=== PATIENT | female | born 1995 | race Caucasian/White ===

== ENCOUNTER 2017-11-06 20:01 | Emergency (ER) | payer BC ==
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
--- NOTE | 2017-11-07 15:44 | CR ---
Bilateral femurs: AP and lateral view of both femurs were obtained. Comparison: No prior study. No fracture or other bony abnormality is seen. Impression: 1. No abnormality is seen on bilateral femur study. Diagnostic code #1
== END 2017-11-06 22:33 | disposition home or self-care (01) ==
LOC: JD.ED 20:01
DX: S77.12XA Crushing injury of left thigh, initial encounter (principal); S77.11XA Crushing injury of right thigh, initial encounter; W23.0XXA Caught, crushed, jammed, or pinched between moving objects, initial encounter; Y92.830 Public park as the place of occurrence of the external cause
CPT/HCPCS: 36415; 73552-50; 735525026; 80048; 82550; 85025; 99283; 99284-25

== ENCOUNTER 2021-02-08 20:50 | Emergency (ER) | payer BC, OTHER ==
[2021-02-08] MEDS ORDERED: Sodium Chloride 0.9% 10 ML Syringe FLUSH PRN (20:57)
[2021-02-08] MEDS ORDERED: Sodium Chloride 0.9% 1,000 ML IV SCH (21:00)
[2021-02-08 22:27] LABS: ACETAMINOPHEN 19 ug/mL (10-30)
[2021-02-08] MEDS ORDERED: Acetylcysteine 20% 200 MG/ML 30 ML SDV IV ONE (22:45)
[2021-02-08] MEDS ORDERED: Acetylcysteine 9,000 MG in Dextrose 5% in Water 200 ML IV ONE ×2 (22:45)
[2021-02-08] MEDS ORDERED: Metoclopramide 10 MG/2 ML SDV IVPUSH ONE (23:51)
[2021-02-09] MEDS ORDERED: Ondansetron 4 MG/2 ML SDV IVPUSH ONE (00:44)
--- NOTE | 2021-02-09 01:21 | EDM.PDOCBH ---
ED HPI GENERAL MEDICAL PROBLEM - General Chief Complaint: Drug or Alcohol Abuse Stated Complaint: [facility] Time Seen by Provider: 02/08/21 20:54 Source of Information: Reports: Patient, EMS, Family History Limitations: Reports: No Limitations - History of Present Illness INITIAL COMMENTS - FREE TEXT/NARRATIVE: The patient presents by [facility] for an overdose. The patient admits she was trying to kill herself. She has been depressed for about a year after she broke up with a boyfriend. She did not seek any help. She has been trying to deal with it on her own. She has been dealing with a lot lately and she tried to kill herself. She took oxycodone with tylenol, zofran, tylenol, aspirin and what ever else she could find. She has thought about doing this in the past but never went through with it. She has no nausea, vomiting, fever, chills, cough, chest pain, abdominal pain, dysuria or hematuria. She will not give many details. She said that she started this morning and when she would wake up she would take more pills. Her mother called her and knew something was wrong and called 911. Onset: Gradual Duration: Hour(s): Severity: Moderate Improves with: Reports: None Worsens with: Reports: None Associated Symptoms: Reports: No Other Symptoms - Related Data Allergies Allergy/AdvReac Type Severity Reaction Status Date / Time No Known Allergies Allergy Verified 02/08/21 21:04 Home Meds: Home Meds . [No Known Home Meds] 11/06/17 [History] Past Medical History Genitourinary History: Reports: Pyelonephritis - Past Surgical History GI Surgical History: Reports: Appendectomy Social & Family History - Family History Family Medical History: No Pertinent Family History - Tobacco Use Tobacco Use Status *Q: Never Tobacco User - Caffeine Use Caffeine Use: Reports: None - Living Situation & Occupation Living situation: Reports: Single, Alone Occupation: Employed ([employer]) ED ROS GENERAL - Review of Systems Review Of Systems: See Below Constitutional: Reports: No Symptoms HEENT: Reports: No Symptoms Respiratory: Reports: No Symptoms Cardiovascular: Reports: No Symptoms Endocrine: Reports: No Symptoms GI/Abdominal: Reports: No Symptoms : Reports: No Symptoms Musculoskeletal: Reports: No Symptoms Psychiatric: Reports: Depression, Suicidal Ideation ED EXAM, BEHAVIORAL HEALTH - Physical Exam Exam: See Below Exam Limited By: No Limitations General Appearance: Alert, Mild Distress (patient is crying) Ears: Normal External Exam Nose: Normal Inspection Head: Atraumatic, Normocephalic Neck: Normal Inspection Respiratory/Chest: No Respiratory Distress, Lungs Clear, Normal Breath Sounds Cardiovascular: Regular Rate, Rhythm, No Edema, No Murmur GI/Abdominal: Soft, Non-Tender, No Organomegaly, No Mass Extremities: Normal Inspection Neurological: Alert, No Motor/Sensory Deficits, Oriented x 3 #1 Interpretation EKG Date: 02/08/21 Time: 20:57 Rhythm: Other (sinus bradycardia) Rate (Beats/Min): 57 [place]: Normal P-Wave: Present QRS: Normal ST-T: Normal QT: Normal COURSE, BEHAVIORAL HEALTH COMP - Course Vital Signs: Last Vital Signs Temp 97.6 F 02/08/21 21:00 Pulse 63 02/09/21 06:26 Resp 16 02/09/21 06:26 BP 106/65 02/09/21 06:26 Pulse Ox 97 02/09/21 06:26 Orders, Labs, Meds: Active Orders 24 hr Category Date Time Status Cardiac Monitoring [RC] . DIRECTED Care 02/08/21 20:57 Active EKG Documentation Completion [RC] STAT Care 02/08/21 20:58 Active Peripheral IV Care [RC] . DIRECTED Care 02/08/21 20:58 Active Suicide Precautions [RC] Q15M Care 02/08/21 21:12 Active Acetylcysteine [Acetadote 20%] 6,000 mg Med 02/09/21 05:30 Active Dextrose 5% in Water 1,000 ml IV ONETIME Sodium Chloride 0.9% [Normal Saline] 1,000 ml Med 02/08/21 21:00 Active IV .BOLUS Sodium Chloride 0.9% [Saline Flush] Med 02/08/21 20:57 Active 10 ml FLUSH ASDIRECTED PRN Peripheral IV Insertion Adult [OM.PC] Stat Oth 02/08/21 20:57 Ordered Medication Orders Sodium Chloride (Normal Saline) 1,000 mls @ 1,000 mls/hr IV .BOLUS MELISSA Last Admin: 02/08/21 21:30 Dose: 1,000 mls/hr Documented by: JOSETTE Acetylcysteine 6,000 mg/ (Dextrose/Water) 1,030 mls @ 64.375 mls/hr IV ONETIME ONE Stop: 02/09/21 21:29 Last Admin: 02/09/21 05:53 Dose: Not Given Documented by: LINDA Sodium Chloride (Sodium Chloride 0.9% 10 Ml Syringe) 10 ml FLUSH ASDIRECTED PRN PRN Reason: Keep Vein Open Last Admin: 02/08/21 21:30 Dose: 10 ml Documented by: JOSETTE Laboratory Tests 02/08/21 02/08/21 02/08/21 Range/Units 20:56 21:45 21:45 WBC 6.75 (3.98-10.04) K/mm3 RBC 4.04 (3.98-5.22) M/mm3 Hgb 12.3 D (11.2-15.7) gm/dl Hct 38.3 (34.1-44.9) % MCV 94.8 D (79.4-94.8) fl MCH 30.4 (25.6-32.2) pg MCHC 32.1 L (32.2-35.5) g/dl RDW Std Deviation 42.1 (36.4-46.3) fL Plt Count 150 L (182-369) K/mm3 MPV 12.5 H (9.4-12.3) fl Neut % (Auto) 84.1 H (34.0-71.1) % Lymph % (Auto) 11.7 L (19.3-51.7) % [place] % (Auto) 4.0 L (4.7-12.5) % Eos % (Auto) 0 L (0.7-5.8) Baso % (Auto) 0.1 (0.1-1.2) % Neut # (Auto) 5.67 (1.56-6.13) K/mm3 Lymph # (Auto) 0.79 L (1.18-3.74) K/mm3 [place] # (Auto) 0.27 (0.24-0.36) K/mm3 Eos # (Auto) 0.00 L (0.04-0.36) K/mm3 Baso # (Auto) 0.01 (0.01-0.08) K/mm3 Sodium 134 L (136-145) mEq/L Potassium 4.0 (3.5-5.1) mEq/L Chloride 101 (98-107) mEq/L Carbon Dioxide 21 (21-32) mEq/L Anion Gap 16.0 H (5-15) BUN 13 (7-18) mg/dL Creatinine 0.8 (0.55-1.02) mg/dL Est Cr Clr Drug Dosing 104.82 mL/min Estimated GFR (MDRD) > 60 (>60) mL/min BUN/Creatinine Ratio 16.3 (14-18) Glucose 97 (70-99) mg/dL Calcium 7.8 L (8.5-10.1) mg/dL Total Bilirubin 2.1 H (0.2-1.0) mg/dL AST 16 (15-37) U/L ALT 14 (14-59) U/L Alkaline Phosphatase 50 (46-116) U/L Total Protein 6.9 (6.4-8.2) g/dl Albumin 3.5 (3.4-5.0) g/dl Globulin 3.4 gm/dL Albumin/Globulin Ratio 1.0 (1-2) TSH 3rd Generation 1.407 (0.358-3.74) uIU/mL HCG, Qual (NEGATIVE) Salicylates (2.8-20) mg/dL Urine Opiates Screen (ELSLIJ=509) Ur Buprenorphine Scrn (CUTOFF=10) Ur Oxycodone Screen (VDO2LV=751) Urine Methadone Screen (UHGLMX=027) Ur Propoxyphene Screen (CZEXLU=473) Acetaminophen 19 (10-30) ug/mL Ur Barbiturates Screen (JCDBVH=504) Ur Tricyclics Screen (OJMQEZ=157) Ur Phencyclidine Scrn (CUTOFF=25) Ur Amphetamine Screen (YDTIWC=454) U Methamphetamines Scrn (PPKWTV=710) U Benzodiazepines Scrn (IEHQOO=938) U Cocaine Metab Screen (YBMZNL=629) U Marijuana (THC) Screen (CUTOFF=50) Ethyl Alcohol 0.00 (0.00) gm% SARS-CoV-2 RNA (CAROLYN) Negative (NEGATIVE) 02/08/21 02/08/21 02/08/21 Range/Units 21:45 21:45 22:30 WBC (3.98-10.04) K/mm3 RBC (3.98-5.22) M/mm3 Hgb (11.2-15.7) gm/dl Hct (34.1-44.9) % MCV (79.4-94.8) fl MCH (25.6-32.2) pg MCHC (32.2-35.5) g/dl RDW Std Deviation (36.4-46.3) fL Plt Count (182-369) K/mm3 MPV (9.4-12.3) fl Neut % (Auto) (34.0-71.1) % Lymph % (Auto) (19.3-51.7) % [place] % (Auto) (4.7-12.5) % Eos % (Auto) (0.7-5.8) Baso % (Auto) (0.1-1.2) % Neut # (Auto) (1.56-6.13) K/mm3 Lymph # (Auto) (1.18-3.74) K/mm3 [place] # (Auto) (0.24-0.36) K/mm3 Eos # (Auto) (0.04-0.36) K/mm3 Baso # (Auto) (0.01-0.08) K/mm3 Sodium (136-145) mEq/L Potassium (3.5-5.1) mEq/L Chloride (98-107) mEq/L Carbon Dioxide (21-32) mEq/L Anion Gap (5-15) BUN (7-18) mg/dL Creatinine (0.55-1.02) mg/dL Est Cr Clr Drug Dosing mL/min Estimated GFR (MDRD) (>60) mL/min BUN/Creatinine Ratio (14-18) Glucose (70-99) mg/dL Calcium (8.5-10.1) mg/dL Total Bilirubin (0.2-1.0) mg/dL AST (15-37) U/L ALT (14-59) U/L Alkaline Phosphatase (46-116) U/L Total Protein (6.4-8.2) g/dl Albumin (3.4-5.0) g/dl Globulin gm/dL Albumin/Globulin Ratio (1-2) TSH 3rd Generation (0.358-3.74) uIU/mL HCG, Qual Negative (NEGATIVE) Salicylates < 0.2 L (2.8-20) mg/dL Urine Opiates Screen Negative (QVOJND=553) Ur Buprenorphine Scrn Negative (CUTOFF=10) Ur Oxycodone Screen Presumptive positive H (IUP2GG=192) Urine Methadone Screen Negative (XYZUFG=744) Ur Propoxyphene Screen Negative (SIQQET=324) Acetaminophen (10-30) ug/mL Ur Barbiturates Screen Negative (XVDGLO=716) Ur Tricyclics Screen Negative (AJIQSO=433) Ur Phencyclidine Scrn Negative (CUTOFF=25) Ur Amphetamine Screen Negative (NWYZKI=930) U Methamphetamines Scrn Negative (CFLMCL=106) U Benzodiazepines Scrn Negative (OHKATX=597) U Cocaine Metab Screen Negative (CBQVFB=266) U Marijuana (THC) Screen Negative (CUTOFF=50) Ethyl Alcohol (0.00) gm% SARS-CoV-2 RNA (CAROLYN) (NEGATIVE) 02/09/21 02/09/21 02/09/21 Range/Units 00:55 05:00 05:00 WBC (3.98-10.04) K/mm3 RBC (3.98-5.22) M/mm3 Hgb (11.2-15.7) gm/dl Hct (34.1-44.9) % MCV (79.4-94.8) fl MCH (25.6-32.2) pg MCHC (32.2-35.5) g/dl RDW Std Deviation (36.4-46.3) fL Plt Count (182-369) K/mm3 MPV (9.4-12.3) fl Neut % (Auto) (34.0-71.1) % Lymph % (Auto) (19.3-51.7) % [place] % (Auto) (4.7-12.5) % Eos % (Auto) (0.7-5.8) Baso % (Auto) (0.1-1.2) % Neut # (Auto) (1.56-6.13) K/mm3 Lymph # (Auto) (1.18-3.74) K/mm3 [place] # (Auto) (0.24-0.36) K/mm3 Eos # (Auto) (0.04-0.36) K/mm3 Baso # (Auto) (0.01-0.08) K/mm3 Sodium 137 136 (136-145) mEq/L Potassium 3.9 3.9 (3.5-5.1) mEq/L Chloride 103 103 (98-107) mEq/L Carbon Dioxide 23 23 (21-32) mEq/L Anion Gap 14.9 13.9 (5-15) BUN 11 10 (7-18) mg/dL Creatinine 0.9 0.8 (0.55-1.02) mg/dL Est Cr Clr Drug Dosing 93.18 104.82 mL/min Estimated GFR (MDRD) > 60 > 60 (>60) mL/min BUN/Creatinine Ratio 12.2 L 12.5 L (14-18) Glucose 131 H 131 H (70-99) mg/dL Calcium 7.0 L 7.4 L (8.5-10.1) mg/dL Total Bilirubin 1.9 H 1.9 H (0.2-1.0) mg/dL AST 12 L 11 L (15-37) U/L ALT 11 L 19 (14-59) U/L Alkaline Phosphatase 44 L 43 L (46-116) U/L Total Protein 6.4 6.7 (6.4-8.2) g/dl Albumin 3.0 L 3.1 L (3.4-5.0) g/dl Globulin 3.4 3.6 gm/dL Albumin/Globulin Ratio 0.9 L 0.9 L (1-2) TSH 3rd Generation (0.358-3.74) uIU/mL HCG, Qual (NEGATIVE) Salicylates < 0.2 L (2.8-20) mg/dL Urine Opiates Screen (LQVEAM=433) Ur Buprenorphine Scrn (CUTOFF=10) Ur Oxycodone Screen (ZBO1ML=286) Urine Methadone Screen (NELARJ=922) Ur Propoxyphene Screen (XZNQDU=359) Acetaminophen 0 L (10-30) ug/mL Ur Barbiturates Screen (CZNKFR=356) Ur Tricyclics Screen (PVQIYB=417) Ur Phencyclidine Scrn (CUTOFF=25) Ur Amphetamine Screen (NPRKMJ=453) U Methamphetamines Scrn (JARZYZ=032) U Benzodiazepines Scrn (AWOEBB=268) U Cocaine Metab Screen (VQYVBU=400) U Marijuana (THC) Screen (CUTOFF=50) Ethyl Alcohol (0.00) gm% SARS-CoV-2 RNA (CAROLYN) (NEGATIVE) Medications Generic Name Dose Route Start Last Admin Trade Name Freq PRN Reason Stop Dose Admin Sodium Chloride 1,000 mls @ 1,000 mls/hr 02/08/21 21:00 02/08/21 21:30 Normal Saline IV 1,000 mls/hr .BOLUS MELISSA Administration Acetylcysteine 6,000 mg/ 1,030 mls @ 64.375 mls/hr 02/09/21 05:30 02/09/21 05:53 Dextrose/Water IV 02/09/21 21:29 Not Given ONETIME ONE Sodium Chloride 10 ml 02/08/21 20:57 02/08/21 21:30 Sodium Chloride 0.9% 10 Ml Syringe FLUSH 10 ml ASDIRECTED PRN Administration Keep Vein Open Discontinued Medications Generic Name Dose Route Start Last Admin Trade Name Sathyaq PRN Reason Stop Dose Admin Acetylcysteine 9,000 mg/ 245 mls @ 245 mls/hr 02/08/21 22:45 02/08/21 23:23 Dextrose/Water IV 02/08/21 23:44 245 mls/hr ONETIME ONE Administration Acetylcysteine 3,000 mg/ 515 mls @ 128.75 mls/hr 02/09/21 01:30 02/09/21 01:37 Dextrose/Water IV 02/09/21 05:29 128.75 mls/hr ONETIME ONE Administration Metoclopramide HCl 10 mg 02/08/21 23:51 02/09/21 00:00 Metoclopramide 10 Mg/2 Ml Sdv IVPUSH 02/08/21 23:52 10 mg ONETIME ONE Administration Ondansetron HCl 4 mg 02/09/21 00:44 02/09/21 01:07 Ondansetron 4 Mg/2 Ml Sdv IVPUSH 02/09/21 00:45 4 mg ONETIME ONE Administration Re-Assessment/Re-Exam: I ordered an IV NS 1L bolus, EKG, labs, urine drug screen, acetaminophen and tylenol. Her platelets were a little low at 150. Her Na was low at 134. Her anion gap is elevated at 16. Her total bilis is 2.1. Her HCG is negative. Her TSH is normal. Her salicylates are <0.2. Her acetaminophen is elevated at 19. Her urine drug screen is positive for oxycodone which she admits to taking. She later tells me about 9 pills. Her ETOH is 0. Her COVID 19 is negative. Poison control was contacted and they recommended started acetadote because we do not know the exact time or amount. She did say maybe about 30 of the tylenol. She also had some nausea and vomiting so I gave her reglan and later some zofran. Poison control did recommend a repeat CMP at 4 hours and that looked good. They wanted to give the next 2 doses of acetadote. I ordered another CMP and her LFTs look good. Her salicylates are still less then 0.2. Her acetaminophen is 0 now. We can stop giving the acetadote. I will try to find her a place to go. I called [facility] and talked with Dr Tompkins the psychiatrist telecommunications engineer and he accepted the patient. Departure - Departure Time of Disposition: 07:30 Disposition: DC/Tfer to Psych Hosp[facility]Unit [facility] Condition: Serious Clinical Impression: Suicidal ideation, Suicide attempt Drug overdose, intentional Qualifiers: Encounter type: initial encounter Qualified Code(s): T50.902A - Poisoning by unspecified drugs, medicaments and biological substances, intentional self-harm, initial encounter - Discharge Information Referrals: PCP,None [Primary Care Provider] - Forms: ED Department Discharge Sepsis Event Note (ED) - Evaluation Sepsis Screening Result: No Definite Risk - Focused Exam Vital Signs: Vital Signs Temp Pulse Resp BP Pulse Ox 02/09/21 06:26 63 16 106/65 97 02/09/21 05:33 66 16 115/67 97 02/09/21 04:08 54 L 16 105/72 99 02/09/21 03:12 60 16 102/67 97 02/08/21 21:00 97.6 F 62 18 123/68 100 - My Orders Last 24 Hours: My Active Orders 02/08/21 20:57 Cardiac Monitoring [RC] . DIRECTED Sodium Chloride 0.9% [Saline Flush] 10 ml FLUSH ASDIRECTED PRN Peripheral IV Insertion Adult [OM.PC] Stat 02/08/21 20:58 EKG Documentation Completion [RC] STAT Peripheral IV Care [RC] . DIRECTED 02/08/21 21:00 Sodium Chloride 0.9% [Normal Saline] 1,000 ml IV .BOLUS 02/08/21 21:12 Suicide Precautions [RC] Q15M 02/09/21 05:30 Acetylcysteine [Acetadote 20%] 6,000 mg Dextrose 5% in Water 1,000 ml IV ONETIME - Assessment/Plan Last 24 Hours: My Active Orders 02/08/21 20:57 Cardiac Monitoring [RC] . DIRECTED Sodium Chloride 0.9% [Saline Flush] 10 ml FLUSH ASDIRECTED PRN Peripheral IV Insertion Adult [OM.PC] Stat 02/08/21 20:58 EKG Documentation Completion [RC] STAT Peripheral IV Care [RC] . DIRECTED 02/08/21 21:00 Sodium Chloride 0.9% [Normal Saline] 1,000 ml IV .BOLUS 02/08/21 21:12 Suicide Precautions [RC] Q15M 02/09/21 05:30 Acetylcysteine [Acetadote 20%] 6,000 mg Dextrose 5% in Water 1,000 ml IV ONETIME
[2021-02-09 05:27] LABS: ACETAMINOPHEN 0 ug/mL (10-30)
== END 2021-02-09 08:30 ==
LOC: JD.ED 20:50
DX: T50.902A Poisoning by unspecified drugs, medicaments and biological substances, intentional self-harm, initial encounter (principal); R00.1 Bradycardia, unspecified; Z20.822 Contact with and (suspected) exposure to COVID-19
CPT/HCPCS: 36415; 80053; 80143; 80179; 80306; 80307; 84443; 84703; 85025; 87635; 93005; 96365; 96366; 96375; 99285; J0132; J2405; J2765; J7030; J7060; 93010; U0002